=== PATIENT | male | born 1955 | race African-American/Black ===

== ENCOUNTER 2019-06-25 21:30 | Inpatient (IN) | payer OTHER, MEDICAID ==
[~2019-06-25] VITALS: Ht 172.7 cm; Wt 74.2 kg
--- NOTE | 2019-06-25 21:32 | NUR ---
PATIENT BIB [facility] WITH ALOC. PT WAS AT [facility] FOR REHAB, FOLLOWING A BACK SURGERY 3 WEEKS AGO. PATIENT NOT ANSWERING QUESTIONS APPROPRIATELY, NEURO CHECK WNL, BREATHING EVEN AND UNLABORED, SKIN WARM, DRY AND INTACT. PT PLACED ON ALL MONITORS FOR FURTHER OBSERVATION.
--- NOTE | 2019-06-25 22:10 | NUR ---
PATIENT TAKEN FOR CT SCAN
[2019-06-25 22:18] LABS: BASOPHIL % 0.3 % (0-2); PLATELET COUNT 207 x10^3mcL (130-400)
[2019-06-25 22:19] LABS: RED CELL DISTRIBUTION WIDTH 16.4 % (11.5-14.5)
[2019-06-25 22:36] LABS: CARBON DIOXIDE 24.9 mmol/L (21-32); CREATININE SERUM 2.8 mg/dL (0.7-1.3)
[2019-06-25 22:41] LABS: BILIRUBIN TOTAL 0.3 mg/dL (0.20-1.00); TOTAL PROTEIN, SERUM 6.9 g/dL (6.4-8.2)
[2019-06-25 22:42] LABS: ALBUMIN 2.5 g/dL (3.4-5.0)
[2019-06-25 23:06] LABS: microscopic required? NO
[2019-06-25 23:12] LABS: urine erythrocyte NEGATIVE (NEGATIVE)
--- NOTE | 2019-06-25 23:50 | NUR ---
PRESENT AT BEDSIDE- [facility] PT WAS FINE BEFORE HIS BACK SURGERY. AFTER HIS SURGERY, HE HAS BEEN GOING [place] SINCE. PATIENT WAS DIAGNOSED WITH SEPSIS A FEW WEEKS AGO. LAST NIGHT SHE NOTICED PATIENT WAS NOT ACTING RIGHT, SHE REQUESTING [facility] RESIDENTIAL TO CALL 911 AND SEND TO THE HOSPITAL FOR EVALUATION. PT HAS A HX OF SEIZURES BUT SAID HE HASN'T HAD A SEIZURE IN YEARS. SEIZURE PRECAUTIONS WERE PUT IN PLACE. WILL CONTINUE TO MONITOR.
[2019-06-26] VITALS (9 sets, daily range): BP systolic 83–120; BP diastolic 47–81
[2019-06-26] MEDS ORDERED: MOM PO (00:18)
[2019-06-26] MEDS ORDERED: OXYBUTYNIN CHLOR5 MG PO (00:18)
[2019-06-26] MEDS ORDERED: PROTONIX40 MG PO (00:19)
[2019-06-26] MEDS ORDERED: PERCOCET1 TA5 PO (00:19)
[2019-06-26] MEDS ORDERED: SENNA8.6 M2 PO (00:20)
[2019-06-26] MEDS ORDERED: ALBUTEROL SULFAT0.51 IH (00:21)
[2019-06-26] MEDS ORDERED: ATROVENT H0.017 MG/1 IH (00:22)
[2019-06-26] MEDS ORDERED: TRAMADOL HCL50 MG PO (00:22)
[2019-06-26 00:58] LABS: MAGNESIUM 2.7 mg/dL (1.8-2.4); PHOSPHOROUS 5.5 mg/dL (2.5-4.9)
[2019-06-26 01:00] LABS: CHOLESTEROL/HDL RATIO 2.6
[2019-06-26 01:05] LABS: T3 TOTAL 0.94 ng/mL
[2019-06-26 01:06] LABS: FREE T4 1.34 ng/dL (0.76-1.46); FREE THYROXINE INDEX 3.4 ug/dL (1.4-4.5); T4(THYROXINE) 8.8 ug/dL (4.7-13.3)
--- NOTE | 2019-06-26 01:15 | NUR ---
RECEIVED PT FROM ED VIA GUER[facility], CAME IN DUE TO ALOC AND HALLUCINATIONS/DELUSSIONS. AAOX3, ABLE TO FOLLOW COMMANDS. NO SOB NOTED, LUNG SOUNDS DIMINISHED ON AUSCULTATION. O2 SAT-96% PN 2LPM/NC. DENIES CHEST PAIN/PRESSURE, SR ON THE MONITOR. ABDOMEN IS DISTENDED AND FIRM. BOWEL SOUNDS HYPOACTIVE. PT CAN'T REMEMBER THE LAST BM. C/O PAIN ON URINATION. W/ BLANCHABLE ERYTHEMA AND SURGICAL INCISION W/ STERI-STRIPS. PRIMARY NURSE MICHOACANO AT BEDSIDE FOR CONTINUITY OF CARE
[2019-06-26 02:40] LABS: AMPHETAMINE QUAL UR NONE DETECTED (See below)
--- NOTE | 2019-06-26 03:00 | NUR ---
SPO2:100 6L NC. TITRATED O2 TO 4L NC. SPO2:96%. NO ACUTE RESP DISTRESS NOTED. NURSE MICHOACANO NOTIFIED
--- NOTE | 2019-06-26 03:02 | NUR ---
BLADDER SCANNER DONE ORDERED. [address] MURDOCK MADE AWARE.
--- NOTE | 2019-06-26 04:00 | NUR ---
PT'S TEMP REASSESSED AFTER ADMIN TYLENOL, 98.6 ORAL. PT'S B/P REASSESSED AFTER NS BOLUS, 83/47. DR. MURDOCK MADE AWARE. ORDERS FOR ANOTHER BOLUS OF NS. WILL CARRY OUT
--- NOTE | 2019-06-26 05:20 | NUR ---
B/P AFTER NS BOLUS, 102/[address] MURDOCK MADE. NO NEW ORDERS AT THIS TIME
[2019-06-26 06:30] LABS: CALCIUM 7.9 mg/dL (8.5-10.1); CARBON DIOXIDE 19.2 mmol/L (21-32); CREATININE SERUM 2.3 mg/dL (0.7-1.3); MAGNESIUM 2.3 mg/dL (1.8-2.4); PHOSPHOROUS 4.9 mg/dL (2.5-4.9); POTASSIUM SERUM 4.4 mmol/L (3.5-5.1)
--- NOTE | 2019-06-26 06:44 | NUR ---
PER DR. MURDOCK, WILL D/C FLEET ENEMA AND ORDER LACTULOSE DUE TO PT'S ALOC AND SPINAL PRECAUTIONS FROM BACK SURGERY. WILL ANTICIPATE NEW ORDERS
[2019-06-26 07:04] LABS: BASOPHIL % 0.3 % (0-2); PLATELET COUNT 151 x10^3mcL (130-400)
[2019-06-26 07:23] LABS: RED CELL DISTRIBUTION WIDTH 16.3 % (11.5-14.5)
--- NOTE | 2019-06-26 08:24 | NUR ---
A+OX1, CONFUSED, TELE 21, PULSES MODERATE AND EQUAL ARMEN, NO EDEMA NOTED, LUNG SOUNDS DIMINISHED, 4L NC, BOWEL SOUNDS ACTIVE, ABD DISTENDED, GENERALIZED WEAKNESS, BEDBOUND, MID BACK INCISION WITH STERI STRIPS AND DRESSING CDI, IV IN RAC WITH NS @ 100 ML/HR, SITE WNL.
--- NOTE | 2019-06-26 10:31 | NUR ---
PER DR ROBLEDO, PT TO RECEIVE 2 FLEETS ENEMAS TODAY. WHEN WE TURNED THE PT TO PREP HIM FOR THE ENEMA HE WENT DIARRHEA BEFORE ENEMA WAS GIVEN. DR ROBLEDO NOTIFIED AND STATED TO HOLD FLEETS ENEMAS FOR NOW AND MONITOR PT BM.
--- NOTE | 2019-06-26 10:38 | NUR ---
PT ALSO VOIDED WHEN HE HAD WATERY BM.
--- NOTE | 2019-06-26 10:56 | NUR ---
PT REQUESTING TO REMOVE UPPER DENTURES. UPPER DENTURES REMOVED AND PLACED IN CASE AT BEDSIDE.
--- NOTE | 2019-06-26 12:13 | NUR ---
ASSISTED PT TO CALL ASHOK. ASHOK STATES SHE HAS PTS PHONE. PT DENTURE CASE BROUGHT TO PT BY AME.
--- NOTE | 2019-06-26 13:38 | NUR ---
PT HAD WATERY BM AND VOIDED, LINENS AND GOWN CHANGED, NO RESPRIATORY DISTRESS NOTED, AT BEDSIDE, CALL LIGHT WITHIN REACH.
--- NOTE | 2019-06-26 16:06 | NUR ---
PT RESTING IN BED, WITH BOTH EYES CLOSED, APPEARS TO BE SLEEPING, NO RESPRIATORY DISTRESS NOTED, CALL LIGHT WITHIN REACH.
--- NOTE | 2019-06-26 18:02 | NUR ---
PT HAD 4 EPISODES OF DIARRHEA TODAY AND VOIDED MULTIPLE TIMES, LINENS CHANGED, PT REPOSITIONED TO L SIDE, PT STATES, "I FEEL GASSY." CALL LIGHT WITHIN REACH.
--- NOTE | 2019-06-26 19:05 | NUR ---
RECEIVED PT LAYING IN BED, NO ACUTE DISTRESS OBSREVED, DENIES PAIN OR DISCOMFORT AT THIS TIME. AA/OX3, ABLE TO MAKE NEEDS KNOWN, SPEECH CLEAR AND APPROPRIATE, AROUSABLE TO VERBAL STIMULI, SEIZURE PRECAUTIONS IN PLACE. SINUS TACH TO TELE #31, HR 116, DENIES CP OR PRESSURE. BREATHING ON 4L NC, EVEN AND UNLABORED, O2 SAT 95% LUNGS CTA TO UPPER LOBES, DIM TO BASES, DENIES SOB OR DYSPNEA. ABD SOFT AND DISTENDED, NO N/V, PT HAD MULTIPLE EPISODES OF LOOSE WATERY STOOLS EARLIER TODAY. INCONTINENT OF STOOL AND URINE, WILL PROVIDE PERICARE NEEDED. GENERALIZED WEAKNESS, BED FAST, ABLE TO HELP WITH TURNING, WILL REPOSITON Q2H. MID BACK INCISION, S/P SPINAL SURGERY 06/03/19 AT [facility] STERI STRIPS AND DRESSING IN PLACE, CDI. IV TO RAC IN PLACE, DRY, PATENT, INTACT, AND INFUSING IVF WELL, NO PAIN, REDNESS OR SWELLING NTOED TO SITE. COMFORT AND SAFETY PRECAUTIONS IN PLACE. FALL RISK PROTOCOL, BED IN LOWEST POSITION WITH SIDE RAILS UPX2 AND BED ALARM ACTIVATED. CALL LIGHT WITHIN REACH. ALL NEEDS ASSESSED AND ATTENDED TO. WILL CONTINUE TO MONITOR
--- NOTE | 2019-06-26 19:08 | NUR ---
ENDORSED CARE TO MICHOACANO BORRERO.
--- NOTE | 2019-06-26 19:58 | NUR ---
PT C/O DRY NARES AND FEELING LIKE "BOOGERS" ARE STUCK IN THERE. ADDED HUMIDIFIER FOR COMFORT.
[2019-06-27 06:19] VITALS: BP 115/56
[2019-06-27 06:52] LABS: BASOPHIL % 0.4 % (0-2); PLATELET COUNT 143 x10^3mcL (130-400)
[2019-06-27 07:08] LABS: CARBON DIOXIDE 21.5 mmol/L (21-32); CHLORIDE SERUM 106 mmol/L (98-107); GFR1 > 60 mL/min; GLUCOSE SERUM 78 mg/dL (74-106); MAGNESIUM 2.2 mg/dL (1.8-2.4); PHOSPHOROUS 2.8 mg/dL (2.5-4.9); POTASSIUM SERUM 4.8 mmol/L (3.5-5.1); RED CELL DISTRIBUTION WIDTH 16.9 % (11.5-14.5); SODIUM SERUM 139 mmol/L (136-145)
--- NOTE | 2019-06-27 07:40 | NUR ---
PATIENT RESTING IN BED, NO ACUTE DISTRESS NOTED. PATIENT A/OX3, DENIES CORBETT. SEIZURE PRECAUTION IN PLACE. TELE MONITOR IN PLACE, DENIES CHEST PAIN. PATIENT ON 4 L NC WITH HUMIDIFIER. ABDOMEN APPEARS DISTENDED/SOFT. DENIES PAIN AT THIS TIME. PATIENT IS BEDFAST, GENERALIZED WEAKNESS NOTED. NS IV INFUSING TO RAC AT 125 ML/HR, NO S/S OF INFILTRATION. CALL LIGHT WITHIN REACH, BED IN LOW POSITION. WILL CONTINUE TO MONITOR FOR CHANGES.
[2019-06-27 09:39] VITALS: BP 117/60
--- NOTE | 2019-06-27 10:53 | NUR ---
PHYSICAL THERAPY AT BEDSIDE
[2019-06-27 13:28] VITALS: BP 99/50
--- NOTE | 2019-06-27 14:20 | NUR ---
PATIENT RESTING IN BED, NO ACUTE DISTRESS. PATIENT DENIES PAIN. IV TO LAC SALINE LOCK. PATIENT TAKEN DOWN FOR CT VIA GURNEY.
[2019-06-27 16:41] VITALS: BP 122/64
--- NOTE | 2019-06-27 17:02 | NUR ---
DR CRAWFORD MADE AWARE OF CT LS WITH CONTRAST RESULT. NO NEW ORDERS RECEIVED.
--- NOTE | 2019-06-27 18:20 | NUR ---
PATIENT RESTING IN BED, NO ACUTE CHANGES NOTED THROUGH OUT SHIFT. PATIENT IS STABLE. PATIENT DENIES SOB, ON 1L NC, PULSE OX 99%. DENIES PAIN. IV TO RAC SALINE LOCK, NO S/S OF INFILTRATION. CALL LIGHT WITHIN REACH, BED IN LOW POSITION, WILL ENDORSE REPORT TO NIGHT NURSE.
--- NOTE | 2019-06-27 20:02 | NUR ---
RECEIVED PATIENT IN BED AWAKE, ALERT AND ORIENTED WITH NO SIGN OF ACUTE DISTRESS. BREATHING EASY AND NON LABOR SATTING AT 98% RA. TELE#15 ST 115'S ON MONITOR, DENIES CHEST DISCOMFORT. ABDOMEN ROUND AND DISTENDED,SOFT WITH ACTIVE BS. DENES BACKPAIN AT THIS TIME. IV HEPLOCK FLUSHED WITH NS. WIFW AT [facility], WILL CONTINUE TO MONITOR. CALL LIGHT WITHIN REACH.
[2019-06-27 20:50] VITALS: BP 122/57
--- NOTE | 2019-06-28 00:50 | NUR ---
APPEAR TO BE SLEEPING THIS TIME BREATHING EASY AND NONLABOR. WILL CONTINUE TO MONITOR.
--- NOTE | 2019-06-28 05:11 | NUR ---
HAD BM X1 LOOSE IN LARGE AMOUNT PER PATIENT. AWAKE MOST OF THE TIME, DENIES PAIN THE ENTIRE SHIFT, PAIN MEDS OFFERED AND PER PATIENT BACKPAIN IS BEARABLE. CHECKED AT INTERVALS FOR NEEDS AND SAFETY.
[2019-06-28 05:37] VITALS: BP 140/56
[2019-06-28 06:29] LABS: BASOPHIL % 0.4 % (0-2); PLATELET COUNT 164 x10^3mcL (130-400)
[2019-06-28 06:37] LABS: RED CELL DISTRIBUTION WIDTH 16.6 % (11.5-14.5)
[2019-06-28 07:03] LABS: CALCIUM 8.7 mg/dL (8.5-10.1); CARBON DIOXIDE 22.1 mmol/L (21-32); CHLORIDE SERUM 105 mmol/L (98-107); CREATININE SERUM 0.6 mg/dL (0.7-1.3); GFR1 > 60 mL/min; GLUCOSE SERUM 93 mg/dL (74-106); MAGNESIUM 1.5 mg/dL (1.8-2.4); PHOSPHOROUS 2.9 mg/dL (2.5-4.9); POTASSIUM SERUM 3.7 mmol/L (3.5-5.1); SODIUM SERUM 140 mmol/L (136-145)
--- NOTE | 2019-06-28 08:00 | NUR ---
SHIFT ASSESSMENT DONE. PATIENT ALERT/ORIETNED X3. ABLE TO MADE NEEDS KNOWN. TELE#21; SR; HR =97. NO RESP DISTRESS ON RA. O2 SAT 97% ON RA. I.S AT BED SIDE. ABD ROUND/SOFT. DENIED ABD PAIN, BUT POOR APPETITE. ON CLEAERE LIQUID DIET. HAD LARGE LOOSE BM THIS AM. VOID VIA URINAL, INCONT AT TIMES. IV TKO TO RFA. IV SITE CLEAN. PATIENT GENERAL WEAKNESS AND SPINAL WEAKNESS. SURGICAL INCISION TO MIDLLE BACK HEALED. NO REDNESS, NO DRAIANGE. SOME STERI STRIP ON. COVERED WITH ISLAND DRSG. DENIED PAIN. SCD TO BLE. OOB W/ PHYSICAL THERAPIST. CALL LIGHT IN REACH.
[2019-06-28 10:36] VITALS: BP 153/75
--- NOTE | 2019-06-28 11:00 | NUR ---
REPORT FROM [facility] = PATIENT NARES MRSA (+). DR. CRAWFORD NOTIFED.
--- NOTE | 2019-06-28 11:04 | NUR ---
REPORTED TO DR. CRAWFORD WITH PATIENT'S MAG LEVEL 1.5; NEW ORDER OF MAG RIDER STARTED.
--- NOTE | 2019-06-28 11:10 | NUR ---
CONTACT ISOLATION FOR MRSA (+) SET UP PER PROTOCOL.
[2019-06-28 13:17] VITALS: BP 155/69
--- NOTE | 2019-06-28 14:23 | NUR ---
Initial Nutrition Assessment: 221T/A MANNY GARBER IA HR Dx: Encephalopathy, PNA, Ileus PMHx: HTN, COPD, Previous chronic alcoholic PSHx: Other (L2-L5 fusion 2 wks/ago) Labs: CREAT 0.6L, HGB 8.7L Meds: Colace, miralax, reglan, senokot, vancomycin, Zofran, zosyn Diet: Clear liquid diet PO Intake: (06/27) breakfast 100% Ht: 172.72 cm (68") Wt: 74 kg (162#) BMI: 24.9 kg/m2 Bed scale: 159.6# IBW: 154# (70 kg) %IBW: 105 UBW: 160# Age: 63/M Food Allergies: NKFA Skin: mid back incision Nigel: 13 Edema: none GI: Last BM: 06/28 Trigger: poor PO >3d Per H&P, Pt is a 63 yo M with PMH HTN, COPD who has had Altered Mental Status since 1 PM yesterday. Pt had a L2-L5 spinal fusion surgery at [facility] 2 weeks ago (on June 03) and was transferred to [facility] 3 days ago for PT rehab. During this Post- op stay, he was also diagnosed with Pneumonia, Sepsis, and hyponatremia RDN Visit (06/28): Patient was alert and oriented but was lethargic. Pt. seems to have lost ~ 3# since admission. FNS received consult for 'malnourished' on 06/26. KUB (06/28) shows mild ileus. Patient said that he has bowel movement today morning. Patient has had a recent spine surgery. Patient said that he has been drinking ONS Ensure clear with meals. Problem with: N/V/D/C: no Problems with: Chewing/Swallowing: none Current appetite: fair Recent wt change: none %wt change: n/a Vitamin/Supplement use: MVI Special diet at home: Regular Physical activity: none d/t spinal surgery Nutrition education given: PO was encouraged Food-drug interactions: Colace- high fiber w/0045-8043 ml fluids Education given: no Estimated Nutritional Needs Based on current body weight 74 kg Energy: 1289-5094 kcal/d (25-30 kcal/kg) Protein: 74-88 g/d (1.0-1.2 g/kg) - preserve LBM Fluid: 0433-5194 ml/d (1 ml/kcal) or per doctor Nutrition Diagnosis 1. Inadequate oral intake related to medical condition as evidenced by clear liquid diet order. Intervention 1. When medically appropriate progress to full liquid (cardiac) diet. Discussed recommendations with Dr. Gamal Hernandez. Monitor/Evaluate Goal: PO intake at least 75% of estimated needs Monitor: PO intake, Labs, GI function F/U in 3-5 days as moderate risk 07/01-
--- NOTE | 2019-06-28 14:23 | NUR ---
1. When medically appropriate progress to full liquid (cardiac) diet. Discussed recommendations with Dr. Gamal Hernandez.
--- NOTE | 2019-06-28 14:44 | NUR ---
SCREEN FOR LOW ALCIRA SCALE AT RISK PRESSURE ULCER INJURY PREVENTION INTERVENTIONS FOLLOW: -TURN AND REPOSITION PATIENT Q 2H OFFLOAD SPINAL AREA -ASSESS AND MONITOR SKIN CONDITION DURING POSITION CHANGE -OFFLOAD BILATERAL HEELS BY PLACING PILLOWS UNDER CALVES AT ALL TIMES, UNLESS OTHERWISE CONTRAINDICATED -PRESSURE REDISTRIBUTION SURFACE THERAPY -KEEP SKIN CLEAN AND DRY AT ALL TIMES.
[2019-06-28 17:46] VITALS: BP 156/67
--- NOTE | 2019-06-28 18:08 | NUR ---
PER DR CRAWFORD PATIENT WILL NOT BE TRANSFER TO [facility]. LEONELA SEWELL MADE AWARE. ;YCELINE WILL NOTIFY [facility]. [facility] PLACED ON WILL CALL. ATTENDING NURSE MICHAEL MADE AWARE.
--- NOTE | 2019-06-28 18:30 | NUR ---
NOTIFIED DR CRAWFORD WITH ORDER FOR TREATMENT MRSA (+) NARES X3. HE SAID HE WOULD WRITE ORDER LATER.
--- NOTE | 2019-06-28 18:38 | NUR ---
CONDITION STABLE. LARGE BM X1 THIS SHIFT VOID X3. IV TKO. DENIED PAIN. ENDORSED CARE TO NOC NURSE.
--- NOTE | 2019-06-28 19:36 | NUR ---
RECEIVED PATIENT IN BED AWAKE, ALERT AND ORIENTED WITH NO SIGN OF ACUTE RESPIRATORY DISTRESS. BREATHING EASYA ND NONLABOR ON O2 AT 2L VIA NC. TELE# 21 NSR ON MONITOR. ABDOMEN ROUND AND DISTENDED WITH ACTIVE BS. IV TO RAC HEPLOCK FLUSHED WITH NS. DRESSING TO MIDBACK WITH INCISION STTERI STRIP CDI. WILL CONTINUE TO MONITOR. CALL LIGHT WITHIN REACH.
[2019-06-28 21:28] VITALS: BP 144/64
--- NOTE | 2019-06-28 23:24 | NUR ---
APPEAR TO BE SLEEPING AT THIS TIME, NO INDICATION OF PAIN AND DISCOMFORT NOTED AT THIS TIME. WILL CONTINUE TO MONITOR.
--- NOTE | 2019-06-29 02:00 | NUR ---
PATIENT AWAKE PULLED HIS IV AND TELE MONITOR APPEAR CONFUSED BUT ABLE TO VERBALIZED HIS NEEDS AND FOLLOW COMMANDS. WILL CONTINUE TO MONITOR.
--- NOTE | 2019-06-29 03:26 | NUR ---
AWAKE THIS TIME, REINSERTED NEW IV TO RT HAND INTACT AND INFUSING WELL.
--- NOTE | 2019-06-29 05:09 | NUR ---
CHECKED AT INTERVALS FOR NEEDS AND SAFETY. HAD BM X1 IN SMALL AMOUNT. REPOSITIONED FOR COMFORT.
[2019-06-29 05:32] VITALS: BP 107/71
[2019-06-29 06:09] LABS: BASOPHIL % 0.7 % (0-2); PLATELET COUNT 175 x10^3mcL (130-400)
[2019-06-29 06:24] LABS: CARBON DIOXIDE 25.4 mmol/L (21-32); CHLORIDE SERUM 102 mmol/L (98-107); CREATININE SERUM 0.7 mg/dL (0.7-1.3); GFR1 > 60 mL/min; GLUCOSE SERUM 81 mg/dL (74-106); POTASSIUM SERUM 3.5 mmol/L (3.5-5.1); SODIUM SERUM 138 mmol/L (136-145)
[2019-06-29 06:39] LABS: RED CELL DISTRIBUTION WIDTH 16.4 % (11.5-14.5)
--- NOTE | 2019-06-29 07:30 | NUR ---
RECEIVED HAND OFF REPORT FROM NIGHT NURSE. PATIENT SITTING UP IN BED AWAKE AND ALERT, NO COMPLAINTS OF PAIN AT THIS TIME. CALL LIGHT WITHIN REACH, WILL CONTINUE TO MONITOR
[2019-06-29 07:48] VITALS: Ht 172.7 cm; Wt 74.2 kg
[2019-06-29 08:10] VITALS: BP 145/63
[2019-06-29 08:54] VITALS: BP 140/75
[2019-06-29 09:01] VITALS: BP 156/57
--- NOTE | 2019-06-29 09:21 | NUR ---
ADMINSTERED MEDICATION PER JAN. PT WITH PATIENT SITTING UP FOR EVAL.
--- NOTE | 2019-06-29 10:00 | NUR ---
PATIENT SAT UP WITH PT AND STOOL WITH WALKER, WAS ABLE TO TOLERAT SIDE STEPPING WITH WEIGHT BEARING. PATIENT HEART RATE INCREASED WHEN STANDING BUT RETURNED TO NORMAL WHEN BACK LAYING DOWN. PATIENT COMPLAINIG OF PAIN AFTER WALKING WITH PT. WILL MEDICATE PER JAN.
[2019-06-29] MEDS ORDERED: VANCOMYCIN1 GM/200 M IV (11:45)
[2019-06-29] MEDS ORDERED: NOVAPLUS ZOSYN50 M1 IV (11:48)
[2019-06-29] MEDS ORDERED: MUPIROCIN2% TOP (11:49)
[2019-06-29] MEDS ORDERED: APAP500 MG PO (11:50)
--- NOTE | 2019-06-29 12:03 | NUR ---
RECEIVED A CALL FROM (RESIDENT) ASSIGNED TO THIS AND HE SAID THAT HE ALREADY SPOKE TO PT ASHOK AND ALL HER QUESTIONS WERE ANSWERED AND THAT SHE IS NOW AGREEABLE FOR PT TO GO TO [facility]. BAMBI BORRERO ASSIGNED TO THIS PT MADE AWARE OF ABOVE.
[2019-06-29 12:05] VITALS: BP 149/65
--- NOTE | 2019-06-29 12:36 | NUR ---
PATIENT FAMILY AT BEDSIDE. DR CRAWFORD SPOKE WITH AND EXPLAINED NEED FOR TRANSFER TO INTERMEDIATE FACILITY. ANSWERED PATIENT QUESTIONS ABOUT CARE PLAN.
[2019-06-29 12:42] VITALS: BP 156/57
--- NOTE | 2019-06-29 13:13 | NUR ---
CALLED REPORT TO BLAYNE BORRERO AT [facility] IN [place]. BEN WILL BE TRANSPORTED BY [facility] AT 1400.
--- NOTE | 2019-06-29 13:50 | NUR ---
ADMINSITERED MEDICATION PER MAR. PATIENT AND FAMILY HAD NO QUESTIONS, JUST WAITING FOR DISCHARGE VIA [facility]. CALL LIGHT WITHIN REACH
--- NOTE | 2019-06-29 14:38 | NUR ---
TRANSPORT FROM [facility] AT ROOM 221 FOR PATIENT. GAVE REPORT TO CREW AND PROVIDED PAPERWORK. ROSAURA LOCKED PATIENT IV TO RIGHT WRIST. REMOVED TELE MONITOR 21 AND RETURENED TO CENTRAL MONITORING TO [facility]. PATIENT TAKEN OFF FLOOR BY [facility]. TRANSPORTING TO THE [facility] ROOM NUMBER 5
== END 2019-06-29 14:32 | DRG 871 ==
LOC: ED 21:30 → DU 23:48
PROVIDERS: Emergency Medicine; Internal Medicine; ADMIT Internal Medicine
DX: A41.9 Sepsis, unspecified organism (principal); J18.9 Pneumonia, unspecified organism; J96.01 Acute respiratory failure with hypoxia; G93.41 Metabolic encephalopathy; N17.0 Acute kidney failure with tubular necrosis; K56.7 Ileus, unspecified; E44.0 Moderate protein-calorie malnutrition; E87.1 Hypo-osmolality and hyponatremia; E86.0 Dehydration; E83.39 Other disorders of phosphorus metabolism; E83.41 Hypermagnesemia; E03.9 Hypothyroidism, unspecified; D64.9 Anemia, unspecified; F17.210 Nicotine dependence, cigarettes, uncomplicated; F10.11 Alcohol abuse, in remission; Z68.25 Body mass index [BMI] 25.0-25.9, adult; Z98.1 Arthrodesis status; Z79.891 Long term (current) use of opiate analgesic
CPT/HCPCS: 36600; 83880; 84439; 97110-GP; 97116-GP; 97530-GP; G0378; J1885; J1956; J2543; J2765; J3370; J3475; J7030; J7050; J7060; J7620; Q0092; Q9967